=== PATIENT | male | born 1975 | race Caucasian/White ===

== ENCOUNTER 2018-05-29 07:44 | Emergency (ER) | payer OTHER ==
[2018-05-29] MEDS ORDERED: 0.9 % SODIUM CHLORIDE 1,000 ML IV STA (07:55)
[2018-05-29] MEDS ORDERED: methylPREDNISolone SOD SUCC 125 MG/2 ML VIAL IVP STA (07:55)
[2018-05-29] MEDS ORDERED: FAMOTIDINE 20 MG/2 ML VIAL IVP STA (07:56)
[2018-05-29] MEDS ORDERED: diphenhydrAMINE HCL 50 MG/ML VIAL IVP STA (07:57)
[2018-05-29 08:03] VITALS: BP 130/77
--- NOTE | 2018-05-29 08:04 | ED Physician Documentation ---
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 pt had fever, chills, and one episode of vomiting yesterday. pt reports he did not eat today or come in contact with any new product/food. pt reports sore throat last week but this resolved. pt denies current chest pain, dyspnea, syncope/near syncope, headache, dizziness, visual disturbances, n/v/d, fever/chills,, sick contacts, dysuria, trauma. melena or hematochezia, bleeding or easy bruising, change in bowel or bladder function, no recent weight loss/gain, anxiety or depression. ROS Negative unless otherwise specified. - ROS CONST: fever, recent illness. denies: sweating, weakness, weight loss, chills EYES/ENT: denies: problems with vision, sore throat, nasal drainage, nasal congestion CVS/RESP: denies: chest pain, shortness of breath, cough GI/: denies: abdominal pain, problems urinating, vomiting, nausea, diarrhea MS/SKIN/LYMPH: rash. denies: calf pain, neck pain, joint pain, leg swelling, swollen glands, leg pain, back pain, ankle swelling NEURO/PSYCH: denies: headache, fainting, dizziness, tingling, numbness, difficulty walking, difficulty with speech, anxiety, depression - PAST HX Past History: hypertension Surgeries/Procedures: none Allergies/Adverse Reactions: Allergies Allergy/AdvReac Type Severity Reaction Status Date / Time No Known Allergies Allergy Verified 05/29/18 07:57 Home Medications: Ambulatory Orders Medication Instructions Recorded Lisinopril [Prinivil] 1 tab PO DAILY 05/29/18 - SOCIAL HX Smoking History: non-smoker Alcohol Use: none Drug Use: none - FAMILY HX Family History: No - VITAL SIGNS Vital Signs: Vital Signs Temp Pulse Resp BP Pulse Ox 99.3 F 109 H 15 130/77 95 05/29/18 07:50 05/29/18 07:50 05/29/18 07:50 05/29/18 07:50 05/29/18 07:50 - REVIEWED ASSESSMENTS Nursing Assessment Reviewed: Yes Vitals Reviewed: Yes ED Results Lab/Radiology - Orders Orders: ED Orders Category Date Time Status Place IV Lock 1T Care 05/29/18 07:55 Ordered CBC/PLATELET/DIFF Stat Lab 05/29/18 07:58 Ordered CMP [CMP] Stat Lab 05/29/18 07:59 Ordered 0.9 % Sodium Chloride [Normal Saline] 1,000 ml Med 05/29/18 07:55 Ordered IV STAT Famotidine/Pf [Pepcid] Med 05/29/18 07:56 Stat 40 mg IVP NOW STA diphenhydrAMINE HCL [Benadryl] Med 05/29/18 07:57 Stat 25 mg IVP NOW STA methylPREDNISolone SOD SUCC [Solu-MEDROL] Med 05/29/18 07:55 Stat 125 mg IVP NOW STA General Adult Physical Exam - PHYSICAL EXAM GENERAL APPEARANCE: no distress EENT: eye inspection normal, no signs of dehydration, DANE, no nystagmus, TM's nml, pharyngeal erythema NECK: normal inspection, thyroid normal, supple. No: lymphadenopathy RESPIRATORY: no resp distress, chest non-tender, breath sounds normal CVS: reg rate & rhythm, heart sounds normal, equal pulses, no murmur, no gallop, PMI nml, no JVD, no friction rub, tachycardia ABDOMEN: soft, no organomegaly, normal bowel sounds, no abdominal bruit, no distension. No: tenderness BACK: normal inspection, no CVA tenderness SKIN: other (generalized some raised uticarial rash) EXTREMITIES: non-tender, normal range of motion, no evidence of injury, no edema, J, SHEET WRITER NEURO: oriented X3, motor nml, sensation nml, mood/affect nml Discharge Clincal Impression: Scarlet fever, uncomplicated Referrals: Primary Doctor,No [Primary Care Provider] - 2 Days Additional Instructions: Stop taking lisinopril Log your blood pressure twice a day and take sheet to your primary care doctor. Rest Increase fluids Prednisone 5 mg taper once daily as directed azithromycin 250 mg. Two tabs day one. One tab days 2-5 Benadryl 50 mg every 6-8 hours seek medical care immediately if difficult to wake, difficulty breathing, feeling faint or fainting, increased rash, chest pain, shortness of breath, or fever not controlled by tylenol/motrin or any concern. follow up with primary care next week or before if not improving as expected. PLEASE UNDERSTAND THAT THIS IS AN EMERGENCY EVALUATION FOR YOUR COMPLAINT AND BY NATURE IS LIMITED AND NOT A SUBSTITUTE FOR ONGOING MEDICAL CARE. EVEN THOUGH TEST RESULTS AND TREATMENT PLAN WERE EXPLAINED THERE MAY BE A NEED FOR ADDITIONAL TESTING TO FULLY DETERMINE THE EXTENT OF YOUR ILLNESS/INJURY/OR CONCERN SO YOU SHOULD CONTACT AND OR ESTABLISH WITH A PRIMARY CARE PROVIDER (OR REFERRAL DOCTOR IF APPLICABLE) FOR AN APPOINTMENT SOON POSSIBLE Comments: DDx allergic rxn to lisinopril Condition: Stable Disposition: 01 HOME, SELF-CARE Decision to Admit: NO Date of Decison to Admit: 05/29/18 Decision Time: 09:15
[2018-05-29 08:34] LABS: MEAN CORPUSCULAR HEMOGLOBIN 29.4 pg (28.0-34.0)
[2018-05-29 08:35] LABS: BASOPHILS % 0.4 (0.0-1.5); EOSINOPHILS % 1.1 % (0.0-6.8); NEUTROPHILS # 12.6 # k/uL (1.4-7.7)
[2018-05-29 08:59] LABS: eGFR (Non-African) > 60
[2018-05-29] MEDS ORDERED: 0.9 % SODIUM CHLORIDE 100 ML IV ONE (09:28)
[2018-05-31 11:32] LABS: APPEARANCE,URINE CLEAR (CLEAR); COLOR,URINE YELLOW (YELLOW); OCCULT BLOOD,URINE NEGATIVE (NEGATIVE); UROBILINOGEN URINE 0.2 Eu (0.2-1.0)
== END 2018-05-29 10:10 | disposition home or self-care (01) ==
LOC: ED 07:44
DX: A38.9 Scarlet fever, uncomplicated (principal)
CPT/HCPCS: 36415; 80053; 81002; 85025; 96374; 96375; 99282; 99284; J0696; J1200; J2930; J7030; S0028; S1016

== ENCOUNTER 2018-05-30 05:07 | Observation (INO) | payer OTHER ==
[2018-05-30] MEDS ORDERED: EPINEPHrine/PF 1 MG/1 ML 1:1000 IM STA (05:14)
[2018-05-30] MEDS ORDERED: 0.9 % SODIUM CHLORIDE 1,000 ML IV STA (05:15)
[2018-05-30] MEDS ORDERED: diphenhydrAMINE HCL 50 MG/ML VIAL IVP STA (05:16)
[2018-05-30] MEDS ORDERED: methylPREDNISolone SOD SUCC 125 MG/2 ML VIAL IVP STA (05:17)
[2018-05-30] MEDS ORDERED: FAMOTIDINE 20 MG/2 ML VIAL IVP STA (05:17)
--- NOTE | 2018-05-30 05:40 | ED Physician Documentation ---
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 Pt presents to the ED via POV c/o allergic reaction including generalized hives, lip swelling, sore throat. Pt seen in the ED yesterday by me with an atypical rash. pt then treated with IV benadryl, solumedrol, Rx azithromycin, prednisone and instructed to take 50 mg of benadryl every 6-8 hours. pt reports he improved then approx 4 this morning woke up with new lip swelling and hives. pt denies current chest pain, dyspnea, syncope/near syncope, headache, dizziness, visual disturbances, n/v/d, fever/chills, sick contacts, dysuria, trauma. melena or hematochezia, bleeding or easy bruising, change in bowel or bladder function, no recent weight loss/gain, anxiety or depression. ROS Negative unless otherwise specified. Duration: continues in ED Associated Symptoms: skin rash, itching, trunk, extremities, diffuse redness, diffuse hives Swelling: lip(s) Shortness of Breath: none Trouble Swallowing/ Speaking: none Identified Cause: no When Did Symptoms Start: 05/29/18 Context: Food Exposure: other (unk) Context: Medication Exposure: KAY Inhibitor - ROS EYES/ENT: sore throat CVS/RESP: denies: chest pain, shortness of breath GI/: denies: abdominal pain, problems urinating, vomiting, nausea CONST: no problems. denies: recent illness, fever, sweating, chills MS/SKIN/LYMPH: none. denies: calf pain, neck pain, swollen glands, leg pain, back pain NEURO/PSYCH: none. denies: headache, tingling, numbness, anxiety - PAST HX Prior Allergic Reaction: none Medical History: hypertension - SOCIAL HX Smoking History: non-smoker Alcohol Use: none Drug Use: none - FAMILY HX Family History: No - VITAL SIGNS Vital Signs: Vital Signs Temp Pulse Resp BP Pulse Ox 100.0 F H 110 H 18 147/83 98 05/30/18 05:14 05/30/18 05:14 05/30/18 05:14 05/30/18 05:14 05/30/18 05:14 - REVIEWED ASSESSMENTS Nursing Assessment Reviewed: Yes Vitals Reviewed: Yes <Audrey Paniagua - Last Filed: 05/30/18 06:55> - VITAL SIGNS Vital Signs: Vital Signs Temp Pulse Resp BP Pulse Ox 100.0 F H 102 H 18 152/93 98 05/30/18 05:14 05/30/18 06:20 05/30/18 06:20 05/30/18 06:20 05/30/18 06:20 <Shayy Campos - Last Filed: 05/30/18 07:26> - PAST HX Allergies/Adverse Reactions: Allergies Allergy/AdvReac Type Severity Reaction Status Date / Time No Known Allergies Allergy Verified 05/30/18 05:18 Home Medications: Ambulatory Orders Medication Instructions Recorded Lisinopril [Prinivil] 1 tab PO DAILY 05/29/18 Progress - Progress Progress: 0700: pt reports improvement in symptoms no itching. decreased rash, itching, although sore throat and lip swelling remains. 0705: care and report transferred to [facility]. <Audrey Paniagua - Last Filed: 05/30/18 06:55> - Progress Progress: 0720: discussed care and plan. He still feels his lips are swollen and feels the other symptoms are improved. He denies any shortness of breath or other complaints. He is agreeable to observation status DG <Shayy Campos - Last Filed: 05/30/18 07:26> ED Results Lab/Radiology - Orders Orders: ED Orders Category Date Time Status Place IV Lock 1T Care 05/30/18 05:15 Active 0.9 % Sodium Chloride [Normal Saline] 1,000 ml Med 05/30/18 05:15 Active IV Q1H EPINEPHrine/PF [Adrenalin 1:1000] Med 05/30/18 05:14 Discontinued 0.3 mg IM NOW STA Famotidine/Pf [Pepcid] Med 05/30/18 05:17 Discontinued 40 mg IVP NOW STA diphenhydrAMINE HCL [Benadryl] Med 05/30/18 05:16 Discontinued 50 mg IVP NOW STA methylPREDNISolone SOD SUCC [Solu-MEDROL] Med 05/30/18 05:17 Discontinued 125 mg IVP NOW STA <Audrey Paniagua - Last Filed: 05/30/18 06:55> - Orders Orders: ED Orders Category Date Time Status Place IV Lock 1T Care 05/30/18 05:15 Active 0.9 % Sodium Chloride [Normal Saline] 1,000 ml Med 05/30/18 05:15 Discontinued IV Q1H 0.9 % Sodium Chloride [Normal Saline] 1,000 ml Med 05/30/18 07:22 Active IV Q1H EPINEPHrine/PF [Adrenalin 1:1000] Med 05/30/18 05:14 Discontinued 0.3 mg IM NOW STA Famotidine/Pf [Pepcid] Med 05/30/18 05:17 Discontinued 40 mg IVP NOW STA diphenhydrAMINE HCL [Benadryl] Med 05/30/18 07:23 Discontinued 50 mg IVP NOW ONE diphenhydrAMINE HCL [Benadryl] Med 05/30/18 05:16 Discontinued 50 mg IVP NOW STA methylPREDNISolone SOD SUCC [Solu-MEDROL] Med 05/30/18 05:17 Discontinued 125 mg IVP NOW STA <Shayy Campos - Last Filed: 05/30/18 07:26> Allergy Symptons Exam - EXAM General Appearance: no acute distress, alert HEENT: voice nml, facial (lower lip swelling- mild) Skin: erythema, urticaria (hives), neck, trunk, arms, legs Extremities: non-tender, nml ROM, no edema Neck: nml inspection. No: lymphadenopathy Respiratory: no resp. distress, breath sounds nml CVS: reg rate & rhythm, heart sounds normal, equal pulses, no murmur, no gallop, PMI nml, no JVD, no friction rub, 24 Abdomen: non-tender, no organomegaly, nml bowel sounds, no distention Neuro: oriented X3, motor nml, sensation nml, mood/affect nml <Audrey Paniagua - Last Filed: 05/30/18 06:55> Discharge <Audrey Paniagua - Last Filed: 05/30/18 06:55> Decision to Admit: [id number] Date of Decison to Admit: 05/30/18 Decision Time: 07:20 <Shayy Campos - Last Filed: 05/30/18 07:26> Clincal Impression: Allergic reaction Qualifiers: Encounter type: subsequent encounter Qualified Code(s): T78.40XD - Allergy, unspecified, subsequent encounter Referrals: Primary Doctor,No [Primary Care Provider] - 2 Days Condition: Stable Disposition: 09 ADMITTED INPATIENT
[2018-05-30] MEDS ORDERED: 0.9 % SODIUM CHLORIDE 1,000 ML IV ONE (07:22)
[2018-05-30] MEDS ORDERED: diphenhydrAMINE HCL 50 MG/ML VIAL IVP ONE ×2 (07:23→12:36)
--- NOTE | 2018-05-30 07:51 | History and Physical Report ---
History of Present Illnes - History of Present Illness Reason for Visit: allergic reaction History of Present Illness: Hives - Past Medical History Cardiac: Other (none ) Pulmonary: denies: Asthma, Bronchitis, COPD Musculoskeletal: denies: Chronic low back pain Rheumatologic: denies: Fibromyalgia Renal/: denies: Chronic renal insuff Endocrine: denies: Diabetes, Hyperthyroidism Dermatology: denies: Eczema - Past Surgical History Past Surgical History: None - Past Social History Smoke: No Alcohol: Rare Drugs: None Lives: Alone Domestic Violence: Negative - Health Maintenance Health Maintenance: Other (meds ) Pneumonia Vaccine: No Resuscitation Status: Resusciation Status Resuscitation Status Full Code - Unable to Obtain History Unable to Obtain: No Review of Systems - Review of Systems Constitutional: Other (hives and lip swelling ). negative: Fever, Chills Eyes: negative: vision change ENT: negative: Ear Pain Respiratory: negative: Cough, Shortness of Breath Cardiovascular: negative: Chest Pain Gastrointestinal: negative: Nausea, Abdominal Pain, Constipation Genitourinary: negative: Dysuria Musculoskeletal: negative: Neck Pain Skin: Rash Neurological: negative: Weakness - Medications/Allergies Allergies/Adverse Reactions: Allergies Allergy/AdvReac Type Severity Reaction Status Date / Time No Known Allergies Allergy Verified 05/30/18 05:18 Current Inpatient Medications: Current Inpatient Medications Sodium Chloride (Normal Saline) 1,000 mls @ 1,000 mls/hr IV Q1H ONE Stop: 05/30/18 08:21 Last Admin: 05/30/18 07:30 Dose: 1,000 mls/hr Exam - Exam Vital Signs: Vital Signs (72 hours) 05/29/18 05/30/18 05/30/18 10:10 05:14 05:45 Temperature 100.0 F H Pulse Rate [ 110 H 97 H Left Pulse ox] Respiratory 18 18 Rate Blood Pressure 130/77 Blood Pressure 130/77 147/83 147/79 [Left Arm] O2 Sat by Pulse 98 93 Oximetry 05/30/18 06:20 Temperature Pulse Rate [ 102 H Left Pulse ox] Respiratory 18 Rate Blood Pressure Blood Pressure 152/93 [Left Arm] O2 Sat by Pulse 98 Oximetry General: Alert, Oriented to Person, Oriented to Place, Oriented to Time HEENT: PERRLA Neck: No: Stridor Lungs: Clear to auscultation, Normal air movement, Speaks full Sentences Cardiovascular: Regular rate Abdomen: Normal bowel sounds Integumentary: Other (hives noted on bilateral arms and entire back. Mild lip swelling. airway open no obvious swelling of tongue ) Extremities: No clubbing, No cyanosis, No edema Neurological: Normal gait, Normal speech Psych/Mental Status: Mental status NL VTE Assessment - RISK FACTOR SCORE VTE RISK FACTOR SCORES: AGE 40-60 YEARS - RISK VTE LOW RISK: SCORE OF 1 OR LESS (RISK PROXIMAL DVT 0.4%) NO PROPHYLAXIS NEEDED
[2018-05-30 08:15] VITALS: BMI 34.5
[2018-05-30] MEDS: 0.9 % SODIUM CHLORIDE 1,000 ML IV SCH ×2 (09:38→17:14)
[2018-05-30] MEDS ORDERED: methylPREDNISolone SOD SUCC 125 MG/2 ML VIAL IVP ONE (11:30)
[2018-05-30] MEDS: diphenhydrAMINE HCL 25 MG TABLET PO PRN (16:54)
[2018-05-30] MEDS ORDERED: predniSONE 20 MG TABLET PO ONE ×2 (18:00→18:46)
[2018-05-30] MEDS ORDERED: LORATADINE 10 MG TABLET PO ONE (18:53)
[2018-05-30 20:34] LABS: MEAN CORPUSCULAR HEMOGLOBIN 30.6 pg (28.0-34.0)
[2018-05-30 20:35] LABS: BASOPHILS % 0.5 (0.0-1.5); EOSINOPHILS % 1.1 % (0.0-6.8); MONOCYTES % 3.8 % (0.0-11.0)
[2018-05-30 21:11] LABS: eGFR (Non-African) > 60
[2018-05-31] MEDS: diphenhydrAMINE HCL 25 MG TABLET PO PRN (01:49)
[2018-05-31] MEDS ORDERED: 0.9 % SODIUM CHLORIDE 1,000 ML IV ONE (02:17)
[2018-05-31] MEDS: 0.9 % SODIUM CHLORIDE 1,000 ML IV SCH ×2 (02:40→03:43)
[2018-05-31 08:55] VITALS: BP 140/78
--- NOTE | 2018-05-31 09:54 | Discharge Summary ---
Discharge Summary - Discharge Sumary History of Present Illness: Pt seen in the ED on day of admission with an atypical rash. pt then treated with IV benadryl, solumedrol, Rx azithromycin, prednisone and instructed to take 50 mg of benadryl every 6-8 hours. pt reports he improved then approx 4 this morning woke up with new lip swelling and hives. Additional Instructions: STOP taking Lisinopril Home Medications: Ambulatory Orders Medication Instructions Recorded Lisinopril [Prinivil] 1 tab PO DAILY 05/29/18 Epinephrine [Epipen] 0.3 mg IM DIRECTED PRN #1 05/31/18 auto.injct Hydroxyzine HCl [Atarax] 25 mg PO BID #30 tablet 05/31/18 predniSONE [Deltasone] 20 mg PO DIRECTED #12 tablet 05/31/18 Consultations this Visit: None Procedures this Visit: None Allergies/Adverse Reactions: Allergies Allergy/AdvReac Type Severity Reaction Status Date / Time No Known Allergies Allergy Verified 05/30/18 05:18 Patient Problems: Current Active Problems Problem Status Onset Allergic reaction Acute Discharge Summary: Patient was admitted and treated with IV solumedrol and benedryl. Rash improve d. In discussion it was discovered a new medication of Lisinopril, was started 2 months ago. This medication was discontinued. Patient was instructed to stopping taking this medication and throw any remaining pills away. He will follow up with PCP on June 10 and discuss blood pressure medication options. Patient was discharged on Atarax PRN, Prednisone taper, and Epipen.
== END 2018-05-31 10:34 | disposition home or self-care (01) ==
LOC: ED 05:07 → SOUTH 07:30
PROVIDERS: ADMIT Nurse Practitioner Family; ATTEND Nurse Practitioner Family
DX: T78.40XD Allergy, unspecified, subsequent encounter (principal)
CPT/HCPCS: 36415; 80053; 83036; 85025; 96365; 96366; 96375; 99284; G0378; J0171; J1200; J2930; J7030; Q0163; S0028; 99217; 99218; S1016